=== PATIENT | female | born 1990 | race African-American/Black ===

== ENCOUNTER → 2016-10-28 | Emergency (ER) | payer OTHER ==
[~2016-10-28] VITALS: Ht 157.5 cm; Wt 68.0 kg
[~2016-10-28] MED LIST: HYDROCODON-ACE1 EA15 ORAL; KEFLEX500 MG ORAL; Morphine Sulfate 4mg/ml Inj IVP ONE; NKM; cefTRIAXone 1 GM in NS 55 ML IVPB ONE
[2016-10-28 22:15] VITALS: BP 107/60
[2016-10-28 22:28] LABS: APPEARANCE,URINE CLEAR; KETONES,URINE NEGATIVE (NEGATIVE); LEUKOCYTE ESTERASE ,URINE 3+ (NEGATIVE); NITRITE,URINE NEGATIVE (NEGATIVE); PH,URINE 6 (4.5-8.0); PROTEIN,URINE NEGATIVE (NEGATIVE); UROBILINOGEN,URINE NORMAL MG/DL (0.0-1.0)
[2016-10-28 22:47] LABS: BACTERIA,URINE MODERATE /HPF; SQUAMOUS EPITHELIAL CELL,UR FEW /LPF (NONE/OCC)
[2016-10-28 22:58] LABS: BASOPHILS % (AUTO) 0.9 % (0.0-2.0); EOSINOPHILS % (AUTO) 1.8 % (0.0-3.0); MEAN CORPUSCULAR HEMOGLOBIN 31.3 PG (27.0-31.0); MEAN CORPUSCULAR HGB CONC 33.5 G/DL (32.0-36.0); MEAN CORPUSCULAR VOLUME 93 FL (80-99); MEAN PLATELET VOLUME 8.1 FL (6.5-10.1); MONOCYTES % (AUTO) 8.9 % (1.0-10.0); NEUTROPHILS % (AUTO) 69.5 % (45.0-75.0); PLATELET COUNT 262 K/UL (150-450); RED BLOOD COUNT 3.27 M/UL (4.20-5.40); WHITE BLOOD COUNT 11.2 K/UL (4.8-10.8)
[2016-10-28 23:07] LABS: ALANINE AMINOTRANSFERASE 7 U/L (3-33); ALBUMIN/GLOBULIN RATIO 1.2 (1.0-2.7); ANION GAP 13 (5-15); ASPARTATE AMINO TRANSFERASE 25 U/L (5-40); CALCIUM 9.4 mg/dL (8.6-10.2); CARBON DIOXIDE 23 mEQ/L (20-30); CHLORIDE 102 mEQ/L (98-107); CREATININE 0.9 mg/dL (0.5-0.9); GLOMERULAR FILTRATION RATE > 60 mL/min (>60); HEMOLYSIS 0; LIPASE 23 U/L (< 60); POTASSIUM 3.9 mEQ/L (3.4-4.9); SODIUM 138 mEQ/L (135-145); TOTAL PROTEIN 7.3 g/dL (6.6-8.7)
--- NOTE | 2016-10-29 00:22 | Emergency Room Report ---
History of Present Illness General Chief Complaint: Abdominal Pain Source: Patient Present Illness HPI This is a 26-year-old female with chief complaint abdominal pain. Pain is to the right lower quadrant area. Onset for last 4 days. No fever or chills but no nausea no vomiting. Tenderness with palpation. Regular menstrual flow. Pain is 9/10. Worse with palpation. Allergies: Coded Allergies: No Known Allergies (Unverified , 10/28/16) Patient History Past Medical History: see triage record, old chart reviewed Past Surgical History: none Pertinent Family History: none Social History: Denies: drug use Last Menstrual Period: 2 weeks ago Now: No Immunizations: other Reviewed Nursing Documentation: PMH: Agreed, PSxH: Agreed Nursing Documentation-PMH Past Medical History: No Stated History Review of Systems Eye: Denies: blurred vision, eye pain ENT: Denies: ear pain, nose congestion, throat swelling Respiratory: Denies: cough, shortness of breath Cardiovascular: Denies: chest pain, palpitations Gastrointestinal: Reports: abdominal pain, Denies: diarrhea, nausea, vomiting Musculoskeletal: Denies: back pain, joint pain Skin: Denies: rash Neurological: Denies: headache, numbness Endocrine: Denies: increased thirst, increased urine Hematologic/Lymphatic: Denies: easy bruising All Other Systems: negative except mentioned in HPI Physical Exam Vital Signs Date Time Temp Pulse Resp B/P Pulse Ox O2 Delivery O2 Flow Rate FiO2 10/28/16 21:37 99.3 111 16 119/73 97 Room Air vitals with tachycardia Sp02 EP Interpretation: reviewed, normal General Appearance: well appearing, no apparent distress, alert Head: normocephalic, atraumatic Eyes: bilateral eye EOMI, bilateral eye PERRL ENT: hearing grossly normal, normal pharynx Neck: full range of motion, supple, no meningismus Respiratory: chest non-tender, lungs clear, normal breath sounds Cardiovascular #1: regular rate, rhythm, no murmur Gastrointestinal: normal bowel sounds, no mass, no organomegaly, no bruit, non- distended, tenderness - rt lower abd. palpable mass to right pelvis area. Musculoskeletal: back normal, gait/station normal, normal range of motion Psychiatric: mood/affect normal Skin: warm/dry Medical Decision Making Diagnostic Impression: Primary Impression: Pelvic mass in female Additional Impression: UTI (urinary tract infection) Qualified Codes: N30.00 - Acute cystitis without hematuria ER Course Patient presents with abdominal pain. She's not . She has a large pelvic mass. She delivered in 2014. Said everything was normal. Is concerned for malignant process. No obstructive process. She does have UTI. Pain is better now. We'll discharge him with close followup with [facility]. I gave her labs and CT scan report. Lab Results Impression labs normal CT/MRI/US Diagnostic Results CT/MRI/US Diagnostic Results : Imaging Test Ordered: CT abd and pelvis Impression Read by radiologist. Large pelvic mass with mets. Last Vital Signs Date Time Temp Pulse Resp B/P Pulse Ox O2 Delivery O2 Flow Rate FiO2 10/28/16 21:37 99.3 111 16 119/73 97 Room Air Status: improved Disposition: HOME, SELF-CARE Condition: Stable Scripts Cephalexin* (KEFLEX*) 500 Mg Capsule 500 MG ORAL TID, #21 CAP 0 Refills Prov: TUAN LOBO M.D. 10/29/16 Hydrocodone/Acetaminophen 5-325* (HYDROCODONE/ACETAMINOPHEN 5-325*) 1 Each Tablet 1 TAB ORAL Q6H Y for For Pain, #30 TAB 0 Refills Prov: TUAN LOBO M.D. 10/29/16 Referrals: [facility],REFERRING (PCP) Additional Instructions: Follow up with your doctor in 3-5 days. You have a pelvic mass that will need further workup. You will need a referral to see [facility] doctor. Return if worse. TUAN LOBO M.D. Oct 29, 2016 00:22
[2016-10-29 00:35] VITALS: BP 100/56
--- NOTE | 2016-10-29 09:26 | Diagnostic Imaging Report ---
Indications: Abdominal pain for one day Technique: Continuous helical CT imaging of the abdomen and pelvis was performed with automatic exposure control on a Siemens sensation [address] scanner. Axial, coronal, sagittal images reconstructed at 3 mm slice thickness. No oral or IV contrast was administered per requesting physician's order, despite no contraindications listed. CTDI volume(s): 15.5 mGy Total DLP: 803 mGy-cm Findings: Comparison: None Lack of oral and IV contrast limits evaluation. Large complex multilobulated mass arises from occupies much of the pelvis, extending into the abdominal cavity to the level of the liver. It measures approximately 17 x 15 26 cm. It displaces multiple adjacent organs. A separate uterus is discernible, though with indistinctness of fascial planes were contacted by the mass. Multiple low-attenuation masses are present in the liver. There is suggestion of small subcapsular versus perihepatic fluid collection anterior to the liver. Remainder visualized abdominopelvic anatomy demonstrates no other obvious acute abnormality. Lung bases and adjacent pleural surfaces clear. No focal skeletal abnormality demonstrated. IMPRESSION: Large abdominopelvic mass as described is suspicious for neoplasm. Diagnostic possibilities include but are not severely limited due to ovarian neoplasm, large exophytic uterine fibroid/leiomyosarcoma, other sarcoma Multiple liver masses suspicious for metastatic neoplasm versus multiple primary liver lesions versus abscesses. Suggestion of associated hepatic subcapsular/perihepatic fluid collection, nonspecific. May represent peritoneal carcinomatosis. Repeat CT scan of the abdomen and pelvis with full oral and IV contrast preparation, multiphasic imaging recommended for more complete evaluation. This correlates with [facility] preliminary report.
== END | disposition home or self-care (01) ==
LOC: EMR 22:20
DX: R10.31 Right lower quadrant pain (principal); R19.09 Other intra-abdominal and pelvic swelling, mass and lump; R16.0 Hepatomegaly, not elsewhere classified; N39.0 Urinary tract infection, site not specified
CPT/HCPCS: 36415; 74176; 80053; 81003; 81025; 83690; 85025; 87086; 87181; 96360; 96361; 96374; 99284; J0696; J2270; J2405

== ENCOUNTER 2016-11-08 13:48 | Inpatient (IN) | payer OTHER ==
[~2016-11-08] VITALS: Ht 157.5 cm; Wt 68.0 kg
[~2016-11-08 13:48] MED LIST changes: -Morphine Sulfate 4mg/ml Inj IVP ONE; -cefTRIAXone 1 GM in NS 55 ML IVPB ONE
--- NOTE | 2016-11-08 14:29 | Emergency Room Report ---
History of Present Illness General Chief Complaint: Abdominal Pain Source: Patient Present Illness HPI 26 YO Female presents to the ED c/O 01/26 in severity Right adnexal/abdominal pain, tenderness, and distention. pt. was here last month for pain in the same area and was dx'd with possible neoplastic abdomino-pelvic mass. pt. has seen OBGYN who believes she has a cyst. Pt. has appt. with cancer specialist next. pt. reports worsening of her pain and distention, denies changes in character other than progressive increase in severity. pt. initially denies vaginal d/c then reports new onset purulent green/orange d/c scant amount on panty-liner just after triage. pt. states menses was over a week ago and has had no spotting. pt reports fevers. states she was rx'd [place], but has not been taking it as it upsets her stomach. pt. also reports not being able to swallow pills. pt. has been taking IBU. denies rashes, trauma or fall. denies nausea or vomiting. Denies CP, Palpitations, LOC, AMS, dizziness, Changes in Vision, Sensation, paresthesias, or a sudden severe headache. Allergies: Coded Allergies: No Known Allergies (Unverified , 10/28/16) Patient History Past Medical History: see triage record Past Surgical History: none Pertinent Family History: none Last Menstrual Period: One week ago Now: No Reviewed Nursing Documentation: PMH: Agreed, PSxH: Agreed Review of Systems All Other Systems: negative except mentioned in HPI Physical Exam Vital Signs Date Time Temp Pulse Resp B/P Pulse Ox O2 Delivery O2 Flow Rate FiO2 11/08/16 14:16 101.5 128 20 102/67 99 Room Air Sp02 EP Interpretation: reviewed, abnormal - tachycardic and febrile General Appearance: no apparent distress, alert, GCS 15, non-toxic, moderate distress Head: normocephalic, atraumatic Eyes: bilateral eye PERRL, bilateral eye normal inspection ENT: hearing grossly normal, normal pharynx, no angioedema, normal voice Neck: full range of motion, supple/symm/no masses Respiratory: lungs clear, normal breath sounds, speaking full sentences Cardiovascular #1: regular rate, rhythm, no edema Gastrointestinal: normal bowel sounds, soft, no rebound, guarding, tenderness - right adnexal ttp, and guarding on the right side. Rectal: deferred Genitourinary: adnexa normal - right adnexal and midline ttp. Musculoskeletal: back normal, gait/station normal, normal range of motion, non- tender Neurologic: alert, oriented x3, responsive, motor strength/tone normal, sensory intact, speech normal Psychiatric: judgement/insight normal, memory normal, mood/affect normal Skin: normal color, no rash, warm/dry, well hydrated Medical Decision Making PA Attestation Dr. Fall is my supervising Physician whom patient management has been discussed with. Diagnostic Impression: Primary Impression: Pelvic mass in female Additional Impressions: UTI (urinary tract infection) Qualified Codes: N30.01 - Acute cystitis with hematuria Infectious process ER Course 26 YO Female presents to the ED c/O 01/26 in severity Right adnexal/abdominal pain, tenderness, and distention. pt. was here last month for pain in the same area and was dx'd with possible neoplastic abdomino-pelvic mass. pt. has seen OBGYN who believes she has a cyst. Pt. has appt. with cancer specialist next. pt. reports worsening of her pain and distention. pt. denies vaginal d/c until minutes after arriving. pt. reports new onset purulent green/orange d/c. pt. states menses was over a week ago and has had no spotting. pt reports fevers. states she was rx'd [place], but has not been taking it as it upsets her stomach. pt. also reports not being able to swallow pills. pt. has been taking IBU. denies rashes, trauma or fall. denies nausea or vomiting. Denies CP, Palpitations, LOC, AMS, dizziness, Changes in Vision, Sensation, paresthesias, or a sudden severe headache. Ddx considered but are not limited to , acute appendicitis, ovarian torsion, ectopic , PID, tubo-ovarian abscess, ovarian cyst.Neoplasm Vital signs: are WNL, pt. is afebrile H&PE are most consistent with possible pelvic neoplasm, suspicious for secondary infection. ORDERS: -CBC: elevated WBC's 15.7 and anemia. - CMP: WNL / unremarkable -LIPASE: WNL -Blood Cultures: pending -Urine Hcg: negative -UA: elevated WBC's , leukocytes, and presence of bacteria suggest infection. -URINE HCG:Negative -Pelvic US Complete: Bilateral ovary and uterus enlargement with segmentation and complex features, there is good vascular flow to the ovaries bilaterally per preliminary US tech report. ED INTERVENTIONS: - 1000cc NS - Flagyl and Zosyn IV - prophylactic abx to cover intra-abdominal and pelvic infectious processes. - 6mg Morphine IV - Tylenol 650mg- liquid version - 4mg Morphine IV - Dr. Juan OBGYN consult at 8:34pm , Dr. Juan was given pt. information , cc, labs and imaging results. Dr. Juan believes this is consistent with TOA, and agrees to see the pt. DISPOSITION: at this time pt. will be admitted to Dr. Avila for Pelvic mass, infectious process, and UTI. Dr. Avila agreed to admit the pt. and to continue pt. care management. Labs Test 11/08/16 14:25 11/08/16 15:00 Urine Color Renetta Urine Appearance Cloudy Urine pH 6 (4.5-8.0) Urine Specific [place] 1.015 (1.005-1.035) Urine Protein 2+ (NEGATIVE) Urine Glucose (UA) Negative (NEGATIVE) Urine Ketones Negative (NEGATIVE) Urine Occult Blood 2+ (NEGATIVE) Urine Nitrite Negative (NEGATIVE) Urine Bilirubin 2+ (NEGATIVE) Urine Ictotest Negative Urine Urobilinogen 12 MG/DL (0.0-1.0) Urine Leukocyte Esterase 3+ (NEGATIVE) Urine RBC 5-10 /HPF (0 - 2) Urine WBC 30-40 /HPF (0 - 2) Urine Squamous Epithelial Cells Moderate /LPF (NONE/OCC) Urine Amorphous Sediment Moderate /LPF (NONE) Urine Bacteria Moderate /HPF (NONE) Urine HCG, Qualitative Negative White Blood Count 15.9 K/UL (4.8-10.8) Red Blood Count 2.98 M/UL (4.20-5.40) Hemoglobin 9.2 G/DL (12.0-16.0) Hematocrit 26.6 % (37.0-47.0) Mean Corpuscular Volume 89 FL (80-99) Mean Corpuscular Hemoglobin 30.8 PG (27.0-31.0) Mean Corpuscular Hemoglobin Concent 34.5 G/DL (32.0-36.0) Red Cell Distribution Width 14.3 % (11.6-14.8) Platelet Count 349 K/UL (150-450) Mean Platelet Volume 6.9 FL (6.5-10.1) Neutrophils (%) (Auto) 78.7 % (45.0-75.0) Lymphocytes (%) (Auto) 9.8 % (20.0-45.0) Monocytes (%) (Auto) 9.9 % (1.0-10.0) Eosinophils (%) (Auto) 0.7 % (0.0-3.0) Basophils (%) (Auto) 0.9 % (0.0-2.0) Prothrombin Time 11.5 SEC (9.30-11.50) Prothromb Time International Ratio 1.1 (0.9-1.1) Activated Partial Thromboplast Time 34 SEC (23-33) Sodium Level 136 mEQ/L (135-145) Potassium Level 4.0 mEQ/L (3.4-4.9) Chloride Level 98 mEQ/L (98-107) Carbon Dioxide Level 25 mEQ/L (20-30) Anion Gap 13 (5-15) Blood Urea Nitrogen 8 mg/dL (7-23) Creatinine 0.9 mg/dL (0.5-0.9) Estimat Glomerular Filtration Rate > 60 mL/min (>60) Glucose Level 93 mg/dL (74-106) Lactic Acid Level 1.40 mmol/L (0.66-2.22) Calcium Level 9.8 mg/dL (8.6-10.2) Total Bilirubin 0.9 mg/dL (0.0-1.2) Aspartate Amino Transf (AST/SGOT) 33 U/L (5-40) Alanine Aminotransferase (ALT/SGPT) 17 U/L (3-33) Alkaline Phosphatase 102 U/L (35-104) Total Protein 8.0 g/dL (6.6-8.7) Albumin 3.9 g/dL (3.5-5.2) Globulin 4.1 g/dL Albumin/Globulin Ratio 0.9 (1.0-2.7) Last Vital Signs Date Time Temp Pulse Resp B/P Pulse Ox O2 Delivery O2 Flow Rate FiO2 11/08/16 14:16 101.5 128 20 102/67 99 Room Air Disposition: ADMITTED INPATIENT Condition: Serious Signed Out To: Dr. Roth Physician Consult: Claritza Solis Nov 08, 2016 14:29
[2016-11-08 15:07] LABS: APPEARANCE,URINE CLOUDY; KETONES,URINE NEGATIVE (NEGATIVE); LEUKOCYTE ESTERASE ,URINE 3+ (NEGATIVE); NITRITE,URINE NEGATIVE (NEGATIVE); PH,URINE 6 (4.5-8.0); PROTEIN,URINE 2+ (NEGATIVE); UROBILINOGEN,URINE 12 MG/DL (0.0-1.0)
[2016-11-08 15:18] LABS: WBC,URINE 30-40 /HPF (0 - 2)
[2016-11-08 15:19] LABS: AMORPHOUS SEDIMENT,UR MODERATE /LPF; BACTERIA,URINE MODERATE /HPF; ICTOTEST NEGATIVE; SQUAMOUS EPITHELIAL CELL,UR MODERATE /LPF (NONE/OCC)
[2016-11-08] MEDS ORDERED: Morphine Sulfate 10mg/ml Inj IM ONE (15:30)
[2016-11-08 15:40] LABS: BASOPHILS % (AUTO) 0.9 % (0.0-2.0); EOSINOPHILS % (AUTO) 0.7 % (0.0-3.0); LYMPHOCYTES % (AUTO) 9.8 % (20.0-45.0); MEAN CORPUSCULAR HEMOGLOBIN 30.8 PG (27.0-31.0); MEAN CORPUSCULAR HGB CONC 34.5 G/DL (32.0-36.0); MEAN CORPUSCULAR VOLUME 89 FL (80-99); MEAN PLATELET VOLUME 6.9 FL (6.5-10.1); MONOCYTES % (AUTO) 9.9 % (1.0-10.0); NEUTROPHILS % (AUTO) 78.7 % (45.0-75.0); PLATELET COUNT 349 K/UL (150-450); RED BLOOD COUNT 2.98 M/UL (4.20-5.40); RED CELL DISTRIBUTION WIDTH 14.3 % (11.6-14.8); WHITE BLOOD COUNT 15.9 K/UL (4.8-10.8)
[2016-11-08] MEDS ORDERED: Tubing IV Cassette IV ONE (15:41)
[2016-11-08] MEDS ORDERED: Piperacillin/Tazobactam 3.375 GM in NS 110 ML IVPB ONE (15:45)
[2016-11-08] MEDS ORDERED: metroNIDAZOLE 500mg 100 ML IVPB ONE (15:45)
[2016-11-08 15:48] LABS: INR 1.1 (0.9-1.1); PROTHROMBIN TIME 11.5 SEC (9.30-11.50)
[2016-11-08 15:56] LABS: ALANINE AMINOTRANSFERASE 17 U/L (3-33); ALBUMIN/GLOBULIN RATIO 0.9 (1.0-2.7); ANION GAP 13 (5-15); ASPARTATE AMINO TRANSFERASE 33 U/L (5-40); CALCIUM 9.8 mg/dL (8.6-10.2); CARBON DIOXIDE 25 mEQ/L (20-30); CHLORIDE 98 mEQ/L (98-107); CREATININE 0.9 mg/dL (0.5-0.9); GLOMERULAR FILTRATION RATE > 60 mL/min (>60); HEMOLYSIS 0; SODIUM 136 mEQ/L (135-145)
[2016-11-08] MEDS ORDERED: Acetaminophen Soln 160mg/5ml ORAL ONE (16:00)
[2016-11-08] MEDS ORDERED: Morphine Sulfate 10mg/ml Inj IVP ONE (16:15)
[2016-11-08 17:00] VITALS: BP 109/73
[2016-11-08] MEDS ORDERED: Zosyn 3.375gm inj ONE (17:23)
[2016-11-08] MEDS ORDERED: Morphine Sulfate 4mg/ml Inj IVP ONE (18:30)
[2016-11-08] MEDS ORDERED: HYDROmorphone 1mg/ml Carpuject IVP ONE (21:30)
[2016-11-08 21:31] VITALS: BP 102/61
[2016-11-08 22:00] VITALS: BP 106/62
[2016-11-09 00:15] VITALS: BP 100/60
[2016-11-09 04:18] VITALS: BP 115/65
[2016-11-09 08:00] VITALS: BP 114/71
[2016-11-09] MEDS: HYDROmorphone 1mg/ml Carpuject IVP PRN ×3 (10:35→22:17)
[2016-11-09 12:00] VITALS: BP 101/57
--- NOTE | 2016-11-09 12:16 | Diagnostic Imaging Report ---
Indication: PAIN, negative urine test Technique: Present on transvaginal images Comparison: CT abdomen pelvis 10/28/2016 Findings: There is enlarged pelvic mass this is contiguous with the uterus, in aggregate measuring 18 cm length by 10.3 cm AP. The right ovary is enlarged, measuring 11 cm length, demonstrating cystic and solid components there is a small amount of free pelvic fluid. The left ovary is enlarged, masslike, containing cystic and solid components, measures approximately 7 cm in length. Impression: Complex adnexal and possibly uterine masses, as described also reported on prior CT scan is of 11 days earlier. Highly suspicious for malignancy. Exact site of origin in relation to the uterus and ovaries difficult to assess on the sonographic images. Small amount free pelvic fluid, nonspecific
--- NOTE | 2016-11-09 14:01 | History and Physical Report ---
DATE OF ADMISSION: 11/08/2016 HISTORY OF PRESENT ILLNESS: This is a 26-year-old female, who recently came to this hospital approximately 10 days ago with abdominal pain. At that time, she was seen and worked up and was found to have large abdominopelvic mass. She was discharged home with outpatient appointment with her PCP, Dr. John Larkin. So, Dr. Larkin, who recommended a biopsy and had starting the process , however, the patient returned to the hospital with worsening abdominal pain. She also reported vaginal discharge. She has been taking Lyndon, but has not able to handle it causes her to have nausea. PAST MEDICAL HISTORY: None. PAST SURGICAL HISTORY: None. ALLERGIES: None. FAMILY HISTORY: None. SOCIAL HISTORY: LMP one week ago. No history of alcohol or tobacco use. REVIEW OF SYSTEMS: The patient denies any headaches, hematemesis, melena, or hematochezia. PHYSICAL EXAMINATION: GENERAL: Reveals young female. VITAL SIGNS: Blood pressure is 130/60, heart rate is 74, and respirations . She is afebrile. HEENT: Unremarkable. CHEST: Shows clear breath sounds bilaterally. ABDOMEN: Soft. There is distention. There is also discomfort and tenderness over the right mid and right lower quadrant. There is a fullness that as well. unremarkable. VAGINAL: Deferred to Gynecology. PELVIC: Deferred to Gynecology. RECTAL: Not performed. LABORATORY DATA: Lab testing shows white count 15.9, hemoglobin 9.2, and platelet count is normal. Chemistry unremarkable. Coagulation studies have been normal. Urinalysis shows 30 to 40 WBCs. IMAGING STUDIES: As discussed above. The patient's CT of the abdomen performed on 10/28/2016 shows a large abdominopelvic mass, which is complex, multilobulated, arising from most of the pelvis and extends to the abdominal cavity measuring 17 x 15 x 20 cm. The uterus is . There also multiple low attenuation masses in the liver. IMPRESSION: 1. Large abdominal mass. 2. Leukocytosis. 3. Possible urinary tract infection. DISCUSSION: We will admit to the hospital for now as the patient could not be transferred last night to contracted facility. This morning, I have been contacted by her [facility], who were recommended transfer to contracted facility. We will arrange. Discussed with the patient at length. I have also contacted [facility] and GI specialist here at this hospital. Nico Avila M.D. DR: ANDREA JOB#: [id number] CC:
--- NOTE | 2016-11-09 14:50 | GI Initial Consult Note ---
History of Present Illness General Date patient seen: Nov 09, 2016 Time patient seen: 11:00 Reason for Hospitalization: Abdominal Pain Referring physician: PIOTR VALE Reason for Consultation: ABDOMINAL PAIN Present Illness HPI 26 YO Female presents to the ED c/O 01/26 in severity Right adnexal/abdominal pain, tenderness, and distention. pt. was here last month for pain in the same area and was dx'd with possible neoplastic abdomino-pelvic mass. pt. has seen OBGYN who believes she has a cyst. Pt. has appt. with cancer specialist next. pt. reports worsening of her pain and distention, denies changes in character other than progressive increase in severity. pt. initially denies vaginal d/c then reports new onset purulent green/orange d/c scant amount on panty-liner just after triage. pt. states menses was over a week ago and has had no spotting. pt reports fevers. states she was rx'd Niotaze, but has not been taking it as it upsets her stomach. pt. also reports not being able to swallow pills. pt. has been taking ICU. denies rashes, trauma or fall. denies nausea or vomiting. Denies CP, Palpitations, LOC, AMS, dizziness, Changes in Vision, Sensation, paresthesias, or a sudden severe headache. GI Consult. HPI as noted above. GI consulted for abdominal pain. Pt seen on floor, awake A&Ox4 NAD with no active s/sx of N/V/D. Reports RLQ abdominal pain with recent known pelvic mass, tender to touch presents today with leukocytosis and anemia. Unknown history of endoscopic procedures. Home Meds Active Scripts Cephalexin* (KEFLEX*) 500 Mg Capsule, 500 MG ORAL TID, #21 CAP 0 Refills Prov:TUAN LOBO M.D. 10/29/16 Hydrocodone/Acetaminophen 5-325* (HYDROCODONE/ACETAMINOPHEN 5-325*) 1 Each Tablet, 1 TAB ORAL Q6H Y for For Pain, #30 TAB 0 Refills Prov:TUAN LOBO M.D. 10/29/16 Reported Medications No Known Medications* (NKM - No Known Medications*) ., 0 ., 0 Refills 10/28/16 Med list reviewed/reconciled: Yes Allergies: Coded Allergies: No Known Allergies (Unverified , 10/28/16) Patient History History Provided By: Patient, Medical Record PMH Narrative Past Medical History: see triage record Past Surgical History: none Pertinent Family History: none Last Menstrual Period: One week ago Now: No Reviewed Nursing Documentation: PMH: Agreed, PSxH: Agreed Social History: Denies: alcohol use, drug use, other, smoking Review of Systems All Other Systems: negative except mentioned in HPI Physical Exam Vital Signs Date Time Temp Pulse Resp B/P Pulse Ox O2 Delivery O2 Flow Rate FiO2 11/08/16 14:16 101.5 128 20 102/67 99 Room Air Sp02 EP Interpretation: reviewed Labs Laboratory Tests Test 11/08/16 15:00 White Blood Count 15.9 K/UL (4.8-10.8) H Red Blood Count 2.98 M/UL (4.20-5.40) L Hemoglobin 9.2 G/DL (12.0-16.0) L Hematocrit 26.6 % (37.0-47.0) L Mean Corpuscular Volume 89 FL (80-99) Mean Corpuscular Hemoglobin 30.8 PG (27.0-31.0) Mean Corpuscular Hemoglobin Concent 34.5 G/DL (32.0-36.0) Red Cell Distribution Width 14.3 % (11.6-14.8) Platelet Count 349 K/UL (150-450) Mean Platelet Volume 6.9 FL (6.5-10.1) Neutrophils (%) (Auto) 78.7 % (45.0-75.0) H Lymphocytes (%) (Auto) 9.8 % (20.0-45.0) L Monocytes (%) (Auto) 9.9 % (1.0-10.0) Eosinophils (%) (Auto) 0.7 % (0.0-3.0) Basophils (%) (Auto) 0.9 % (0.0-2.0) Prothrombin Time 11.5 SEC (9.30-11.50) Prothromb Time International Ratio 1.1 (0.9-1.1) Activated Partial Thromboplast Time 34 SEC (23-33) H Sodium Level 136 mEQ/L (135-145) Potassium Level 4.0 mEQ/L (3.4-4.9) Chloride Level 98 mEQ/L (98-107) Carbon Dioxide Level 25 mEQ/L (20-30) Anion Gap 13 (5-15) Blood Urea Nitrogen 8 mg/dL (7-23) Creatinine 0.9 mg/dL (0.5-0.9) Estimat Glomerular Filtration Rate > 60 mL/min (>60) Glucose Level 93 mg/dL (74-106) Lactic Acid Level 1.40 mmol/L (0.66-2.22) Calcium Level 9.8 mg/dL (8.6-10.2) Total Bilirubin 0.9 mg/dL (0.0-1.2) Aspartate Amino Transf (AST/SGOT) 33 U/L (5-40) Alanine Aminotransferase (ALT/SGPT) 17 U/L (3-33) Alkaline Phosphatase 102 U/L (35-104) Total Protein 8.0 g/dL (6.6-8.7) Albumin 3.9 g/dL (3.5-5.2) Globulin 4.1 g/dL Albumin/Globulin Ratio 0.9 (1.0-2.7) L General Appearance: well appearing, no apparent distress, alert Head: normocephalic EENT: PERRL/EOMI, normal ENT inspection Neck: full range of motion, supple Respiratory: normal breath sounds, no respiratory distress Cardiovascular: normal rate Gastrointestinal: tenderness - RLQ Rectal: deferred Genitourinary: no CVA tenderness Musculoskeletal: back normal Neurologic: normal inspection, alert, oriented x3, responsive Psychiatric: normal inspection, judgement/insight normal, memory normal Skin: normal inspection, normal color, no rash, warm/dry Lymphatic: normal inspection, no adenopathy Current Medications Current Medications Medications (Trade) Dose Ordered Sig/Roma Route PRN Reason Start Time Stop Time Status Last Admin Dose Admin Acetaminophen (Tylenol) 650 mg Q6H PRN ORAL Mild Pain/Temp > 100.5 11/08/16 23:00 12/08/16 22:59 Hydromorphone HCl (Dilaudid) 1 mg Q4H PRN IVP Moderate Pain (Pain Scale 4-6) 11/08/16 23:00 11/15/16 22:59 11/09/16 10:35 Hydromorphone HCl (Dilaudid) 2 mg Q4H PRN IVP Severe Pain (Pain Scale 7-10) 11/08/16 23:00 11/15/16 22:59 Sodium Chloride (Sodium Chloride 1000ml bag) 1,000 ml @ 75 mls/hr [id number] IV 11/08/16 23:00 12/08/16 22:59 11/09/16 12:42 GI: Plan Problems: (1) Infectious process (2) Pelvic mass in female Plan patient scheduled for transfer to another facility recommend anemia work up OB stool r/o GI bleed CT AP ordered patient will require bx of mass, consider possible oncology consultation pain mgmt [facility] consultation fu labs Discussed with Dr. Xiao. Thank you for referring this patient, we will follow. Jolene Lobo N.P. Nov 09, 2016 14:50
[2016-11-09 16:00] VITALS: BP 119/73
[2016-11-09 20:00] VITALS: BP 113/74
[2016-11-10 00:07] VITALS: BP 110/70
[2016-11-10 04:00] VITALS: BP 110/71
[2016-11-10] MEDS: HYDROmorphone 1mg/ml Carpuject IVP PRN (06:59)
[2016-11-10 08:09] VITALS: BP 115/70
--- NOTE | 2016-11-10 08:15 | Pulmonology Progress Note ---
Assessment/Plan Assessment/Plan IMPRESSION: 1. Large abdominal mass. 2. Leukocytosis. 3. Possible urinary tract infection. DISCUSSION: Await transferr to contracted facility. Will start LEvaquin Subjective Interval Events: None Constitutional: Reports: no symptoms HEENT: Repors: no symptoms Respiratory: Reports: no symptoms Cardiovascular: Reports: no symptoms Allergies: Coded Allergies: No Known Allergies (Unverified , 10/28/16) Objective Last 24 Hour Vital Signs Date Time Temp Pulse Resp B/P Pulse Ox O2 Delivery O2 Flow Rate FiO2 11/10/16 08:09 98.2 100 20 115/70 96 Room Air 11/10/16 04:00 98.4 94 20 110/71 97 Room Air 11/10/16 00:07 98.2 99 19 110/70 94 Room Air 11/09/16 20:00 98.4 83 19 113/74 98 Room Air 11/09/16 17:45 98.3 11/09/16 16:00 98.3 99 20 119/73 99 Room Air 11/09/16 12:00 96.3 85 18 101/57 96 Room Air Intake and Output 11/09/16 11/10/16 19:00 07:00 Intake Total 475 ml 1140 ml Balance 475 ml 1140 ml Intake Oral 400 ml 240 ml IV Total 75 ml 900 ml # Voids 1 2 # Bowel Movements 1 General Appearance: no acute distress HEENT: normocephalic Respiratory/Chest: chest wall non-tender, lungs clear Cardiovascular: normal peripheral pulses Abdomen: normal bowel sounds Microbiology Date/Time Source Procedure Growth Status 11/08/16 15:10 Blood Blood Culture - Preliminary NO GROWTH AFTER 24 HOURS Resulted 11/08/16 15:00 Blood Blood Culture - Preliminary NO GROWTH AFTER 24 HOURS Resulted 11/08/16 14:25 Urine,Clean Catch Urine Culture - Preliminary Gram Negative Bacillus 1 Gram Negative Bacillus 2 Resulted Current Medications Medications (Trade) Dose Ordered Sig/Roma Route PRN Reason Start Time Stop Time Status Last Admin Dose Admin Acetaminophen (Tylenol) 650 mg Q6H PRN ORAL Mild Pain/Temp > 100.5 11/08/16 23:00 12/08/16 22:59 Hydromorphone HCl (Dilaudid) 1 mg Q4H PRN IVP Moderate Pain (Pain Scale 4-6) 11/08/16 23:00 11/15/16 22:59 11/10/16 06:59 Hydromorphone HCl (Dilaudid) 2 mg Q4H PRN IVP Severe Pain (Pain Scale 7-10) 11/08/16 23:00 11/15/16 22:59 Sodium Chloride (Sodium Chloride 1000ml bag) 1,000 ml @ 75 mls/hr [id number] IV 11/08/16 23:00 12/08/16 22:59 11/10/16 01:51 Nico Avila MD Nov 10, 2016 08:15
[2016-11-10] MEDS ORDERED: Levofloxacin 500mg tab ORAL SCH (09:00)
--- NOTE | 2016-11-10 10:13 | Diagnostic Imaging Report ---
Clinical Indication: Abdominal pain, right adnexal pain, tenderness and distention Technique: No oral contrast utilized, per emergency room physician request IV administration nonionic contrast. Venous phase spiral acquisition obtained through the abdomen and pelvis. Multiplanar reconstructions were generated. Total dose length product 920 mGycm. CTDIvol(s) 17 mGy. Dose reduction achieved using automated exposure control Comparison: 10/28/2016 noncontrast study Findings: Large anterior pelvic mass is again demonstrated, anterior to the uterine fundus but extending well into the abdomen and displacing surrounding structures. This appears larger than on the previous exam. It contains cystic and necrotic elements as well as enhancing solid areas. Currently measures approximately 17 cm transverse by 11 cm AP by 24 cm craniocaudad, previously 16 x 11 x 22. This mass appears to be contiguous with the uterus, but separate from it. A second mass is seen posterior to the uterus and to the left of midline. This demonstrates similar features, mostly cystic/necrotic but with some enhancing solid components. This measures 8.5 x 4.6 cm, previously 7.3 x 4.2. There is a small amount of free pelvic fluid which is not clearly evident previously. There is also ascites over the dome of the liver that was not evident previously. There is slight infiltration of the mesenteric fat cephalad to the larger mass. There are bilateral paraovarian varices. There may be a small posterior lower uterine segment fibroid. Again demonstrated are masses within the liver, probably within the right hepatic lobe.. These demonstrate combination of enhancement and likely central necrosis. The largest of these is in segment 8, measures 5 cm long axis dimension, may be minimally increased in size from the previous exam The gallbladder, bile ducts, pancreas, spleen, adrenals, kidneys are unremarkable. No mesenteric or retroperitoneal mass or adenopathy. There are bilateral small pleural effusions now present, right greater than left. The included lung bases are otherwise clear except for some compressive/dependent atelectatic changes. The bones are unremarkable. Distal esophagus, stomach, duodenum are unremarkable. No small bowel distention or small bowel wall thickening. No free intraperitoneal air. No evidence of diverticulosis or diverticulitis. Contrast has traversed the entirety of the small bowel and is seen well into the distal colon. The appendix is normal. Impression: 2 solid/cystic/ necrotic pelvic masses, anterior mass very large, 17 x 11 x 24 cm, posterior left lateral mass also sizable but smaller. 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 These have increased noticeably in size since prior study of 12 days earlier, which suggests very aggressive tumor Multiple right lobe liver masses, presumably representing metastatic deposits. These are also increased slightly in size since the prior study. Bilateral paraovarian varices. These may be related to the above masses, or. Represent a separate process of ovarian venous insufficiency. Trace ascites. Suspect malignant in origin Small bilateral right greater than left pleural effusions. The CT scanner at [facility] is accredited by the [employer] and the scans are performed using protocols designed to limit radiation exposure to as low as reasonably achievable to attain images of sufficient resolution adequate for diagnostic evaluation.
--- NOTE | 2016-11-10 11:33 | GI Progress Note ---
Assessment/Plan Problems: (1) Anemia ICD Codes: D64.9 - Anemia, unspecified SNOMED: 346966199 (2) Pelvic mass in female ICD Codes: R19.00 - Intra-abdominal and pelvic swelling, mass and lump, unspecified site SNOMED: 48272676 Status: stable, unchanged Status Narrative Discussed with Dr. Xiao. Assessment/Plan CT AP reviewed >> 2 solid/cystic/ necrotic pelvic masses, anterior mass very large, 17 x 11 x 24 cm, posterior left lateral mass also sizable but smaller. 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 These have increased noticeably in size since prior study of 12 days earlier, which suggests very aggressive tumor. patient scheduled for transfer to another facility recommend anemia work up OB stool r/o GI bleed patient will require bx of mass, consider possible oncology consultation pain mgmt [employer] consultation fu labs Subjective Gastrointestinal/Abdominal: Reports: abdominal pain Objective Last 24 Hour Vital Signs Date Time Temp Pulse Resp B/P Pulse Ox O2 Delivery O2 Flow Rate FiO2 11/10/16 08:09 98.2 100 20 115/70 96 Room Air 11/10/16 04:00 98.4 94 20 110/71 97 Room Air 11/10/16 00:07 98.2 99 19 110/70 94 Room Air 11/09/16 20:00 98.4 83 19 113/74 98 Room Air 11/09/16 17:45 98.3 11/09/16 16:00 98.3 99 20 119/73 99 Room Air 11/09/16 12:00 96.3 85 18 101/57 96 Room Air Intake and Output 11/09/16 11/10/16 19:00 07:00 Intake Total 475 ml 1140 ml Balance 475 ml 1140 ml Intake Oral 400 ml 240 ml IV Total 75 ml 900 ml # Voids 1 2 # Bowel Movements 1 Height (Feet): 5 Height (Inches): 2.00 Weight (Pounds): 150 General Appearance: no apparent distress, alert Cardiovascular: normal rate Respiratory/Chest: normal breath sounds, no respiratory distress Abdominal Exam: normal bowel sounds, soft, tender Jolene Roth N.P. Nov 10, 2016 11:33
--- NOTE | 2016-11-11 07:54 | Cardiology Report ---
APPROVED REPORT EKG Measurement Heart [id number] MA [id number] Sinus tachycardia Nonspecific T wave abnormality Abnormal ECG
--- NOTE | 2016-11-12 10:18 | Discharge Summary ---
Discharge Summary Hospital Course Date of Admission Nov 08, 2016 at 17:41 Date of Discharge Nov 10, 2016 at 11:10 Admitting Diagnosis intractable pain pelvic mass HPI Corie Amos is a 26 year old female who was admitted on Nov 08, 2016 at 17:41 for Intractable Pain Pelvic Mass Hospital Course [id number] Discharge Discharge Disposition Patient was discharged to Acute Care Facility(02) Discharge Diagnoses: Heaven Ferrer NP Nov 12, 2016 10:18
--- NOTE | 2016-11-12 22:46 | Discharge Summary 2 SIG ---
DATE OF ADMISSION: 11/08/2016 DATE OF DISCHARGE: 11/10/2016 WOOD FLOOR LAYER: Heath Xiao M.D. BRIEF HOSPITAL COURSE: The patient is a 26-year-old female, who presented to ED complaining of 10/10 pain on the right adnexal area/abdominal pain with tenderness and distention. The patient was admitted last month for pain in the same area and was diagnosed with possible neoplastic abdominal pelvic mass. The patient has seen an OB maintenance supervisor electrical, who believe it was a cyst. She has an appointment with the cancer specialist. She reported worsening of pain and distention with progressive increase in severity. She initially denied vaginal discharge then reported new onset of purulent greenish/orange discharge with scant amount on panty liner just after triage. She stated that she had her menses over a week ago and had no spotting. She reported fever and reported not being able to swallow medications and has been taking ibuprofen for pain. On evaluation at ED, laboratories showed elevated WBC and anemia. Hemoglobin of 9.2 and hematocrit 26. Urine HCG was negative. She underwent a pelvic ultrasound that showed a complex adnexal and possibly uterine mass suspicious for malignancy. She was given pain medications and was admitted to medical floor for evaluation of abdominal mass and leukocytosis with possible urinary tract infection. Urinalysis showed 30 to 40 WBC. She was started on Levaquin. She was seen by gastrointestinal. CT of the abdomen and pelvis done showed a two solid/cystic/necrotic pelvic mass, probably bilateral ovarian origin. Masses have increased noticeably in size from the prior study 12 days earlier. The patient was then transferred to contracted facility to continue workup. FINAL DIAGNOSES: 1. Large abdominal mass with a CT findings of pelvic mass. 2. Leukocytosis. 3. Possible urinary tract infection. Nico Avila M.D. I have been assigned to dictate discharge summary on this account and I was not involved in the patient's management. Heaven Ferrer N.P. DR: MASON JOB#: [id number] CC: [email or web address]
== END 2016-11-10 11:10 | disposition home or self-care (01) | DRG 254 ==
LOC: EMR 14:47 → 3E 17:41 → EDBEDREQ 20:45
DX: R19.00 Intra-abdominal and pelvic swelling, mass and lump, unspecified site (principal); N39.0 Urinary tract infection, site not specified; D64.9 Anemia, unspecified
CPT/HCPCS: 36415; 74177; 76856; 80053; 81003; 81025; 83605; 85025; 85610; 85730; 87040; 87086; 87181; 93005